=== PATIENT | female | born 1965 | race Caucasian/White ===

== ENCOUNTER 2016-10-18 06:11 | Day surgery (SDC) | payer OTHER ==
[~2016-10-18] VITALS: Ht 170.2 cm; Wt 79.4 kg
[~2016-10-18 06:11] MED LIST: ESTRACE1 MG PO; ULTRAM50 MG PO
[2016-10-18 07:57] LABS: HEMATOCRIT 40.2 % (36.0-48.0); HEMOGLOBIN 14.1 g/dL (12-16); MCHC 35.1 g/dL (31.0-37.0); MCV 88.4 fL (80.0-100.0); MEAN PLATELET VOLUME 8.8 fL (7.4-10.4); RBC 4.55 10x6/uL (4.00-5.40); RDW 12.3 % (11.5-14.5); WBC 6.7 10x3/uL (4.8-10.8)
[2016-10-18] MEDS ORDERED: PRILOSEC PO (08:05)
[2016-10-18 08:06] VITALS: BP 122/64; Ht 170.2 cm; Wt 79.4 kg
--- NOTE | 2016-10-18 10:54 | NUR ---
ORTIZ CATHETER DC WITH CATHETER TIP INTACT. 80CC URINE IN BAG.
--- NOTE | 2016-10-18 11:14 | NUR ---
ANESTHESIA CONSULTED ABOUT O2 SAT AND ORDERED DISCHARGE FROM RECOVERY ROOM WITH O2SAT > 90%
--- NOTE | 2016-10-18 13:54 | NUR ---
NORCO 5MG PO FOR C/O PAIN.
--- NOTE | 2016-10-18 14:10 | NUR ---
DISCHARGE INSTRUCTIONS AND RX GIVEN, VOICED UNDERSTANDING. DISCHARGED HOME VIA WC.
[2016-10-25] MEDS ORDERED: PRILOSEC10 M1 PO (10:00)
--- NOTE | 2016-12-06 10:17 | HP ---
PATIENT: ABIODUN WALKER MEDICAL RECORD: [id number] ACCOUNT: [id number] LOCATION:[facility] : 61 ADMISSION DATE: 10/18/16 HISTORY AND PHYSICAL EXAMINATION CHIEF COMPLAINT: Polyp. HISTORY OF PRESENT ILLNESS: The patient has an adenomatous polyp of the appendix. It covers the appendiceal orifice. I tried to remove it endoscopically with the argon plasma experimental rocket sled mechanic. However, I was fearful that manipulations of this could actually precipitate a bout of acute appendicitis. Therefore, the patient to undergo laparoscopic appendectomy, possible cecectomy today. The risks, possible complications and alternatives to procedure were explained to the patient. She elects to proceed. PAST MEDICAL HISTORY AND PAST SURGICAL HISTORY: Hysterectomy, ACL repair and gastroesophageal reflux controlled with medicines. REVIEW OF SYSTEMS: Negative for CVA or seizures. Negative for diabetes or thyroid problems. ALLERGIES: PENICILLINS WELL CEFDINIR. HOME MEDICINES: Prilosec and Estrace. PHYSICAL EXAMINATION: GENERAL: The patient does not appear acutely ill. She does not appear chronically ill. VITAL SIGNS: Reviewed. HEAD: External ears appear normal. EYES: Extraocular movements are intact. NECK: Trachea is midline. CHEST: No intercostal retractions. PULMONARY: Nonlabored, no stridor. ABDOMEN: Nontender. IMPRESSION: Appendiceal polyp, possible appendiceal tumor. PLAN: Will be laparoscopic appendectomy, possible laparoscopic cecectomy. TRANSINT:[id number] Voice Confirmation ID: [id number] DOCUMENT ID: [id number] ANJELICA BONILLA MD at 1017 CC: ALEYDA LORENZO MD, GEE TAVAREZ DO and MIKY OLSON [id number] DICTATION DATE: 10/18/16 1050 [facility] [employer] [employer]: 10/18/[address] [facility] 10/18/[address] [address]
--- NOTE | 2016-12-06 10:17 | OP ---
PATIENT NAME: ABIODUN WALKER MEDICAL RECORD: [id number] :61 LOCATION:D.OPS ADMISSION DATE: SURGEON: ANJELICA BONILLA MD DATE OF OPERATION: 10/18/2016 PREOPERATIVE DIAGNOSIS: Appendiceal polyp versus mass. POSTOPERATIVE DIAGNOSES: Appendiceal polyp versus mass with a very close margin after the appendectomy necessitating a laparoscopic cecectomy. Pelvic adhesions. PROCEDURE: Laparoscopic appendectomy with cecectomy. SURGEON: Anjelica Bonilla MD CO FOUNDER AND CTO: None. BLOOD LOSS: Minimal. ANESTHESIA: General. COMPLICATIONS: None. The risks, possible complications and alternatives to the procedure were explained to the patient. She elects to proceed. OPERATIVE COURSE: The patient was conveyed to the operating room electively on 10/18/2016. General anesthesia was induced by the anesthesia staff. The abdomen was sterilely prepped and draped. A small skin jennifer was accomplished in the left upper quadrant. A Veress needle was inserted through the skin jennifer into the peritoneal cavity. CO2 insufflation was begun. Once a sufficient pneumoperitoneum had been achieved, a 5-mm trocar was inserted through an incision in the left lower quadrant. Under direct internal vision utilizing a television camera, a 12-mm trocar was inserted through an incision at the umbilicus. Another 5-mm trocar was inserted through an incision within the patient's Pfannenstiel scar, in the right lower quadrant. During insertion of the Veress needle and all trocars, there appeared to have been no injury to the bowels, any intraperitoneal or retroperitoneal structures. The laparoscopic camera was inserted. An abdominal survey was undertaken. The tip of the cecum was stuck down due to adhesions in the pelvis. I freed this up through the use of sharp and dull dissection. I then incised the retroperitoneal attachments to the cecum. I mobilized the cecum laterally and posteriorly. I took down the mesoappendix utilizing the EnSeal device. I then stapled across the tip of the cecum and removed the appendix. It was placed within an endoscopic retrieval bag. It was sent to the pathologist for interpretation. He stated that one margin was pretty close and he would recommend reexcision. Therefore, a full laparoscopic cecectomy was indicated. I grasped the staple line. I pulled it posteriorly. I then excised the remaining portion of the cecum utilizing the linear cutting stapler. This portion was sent to the pathologist as a permanent section. Meticulous hemostasis was achieved with the EnSeal device. I irrigated and aspirated. There was no bleeding even at low pressure of 8. The 12-mm trocar was removed. A Christoph-Malvin suture closure device and a 0 Vicryl suture was used to close the fascia and muscle at the umbilicus. All the trocars were removed and the OPERATIVE REPORT [id number] ABIODUN WALKER abdomen desufflated. The 5-mm trocar skin incisions were closed with interrupted intracuticular 3-0 Vicryls. The skin at the umbilicus was closed with interrupted 4-0 Vicryl Rapide sutures. Benzoin and Steri-Strips were applied. The patient was then extubated and conveyed to post-anesthesia care unit where she was in stable condition. She will be dismissed home on hydrocodone for pain. I will see her in the office in 2-3 weeks. TRANSINT:[id number] Voice Confirmation ID: [id number] DOCUMENT ID: [id number] ANJELICA BONILLA MD at 1017 CC: [id number] DICTATION DATE: 10/18/16 1100 [employer]EST BIOMETR[employer] PROFESSOR: 10/18/16 1155 [facility] 10/18/[address] [address]
== END 2016-10-18 14:10 | disposition home or self-care (01) ==
LOC: D.OPS 06:11 → D.PAN 08:45 → D.OPS 14:10
PROVIDERS: Anesthesiology
DX: K38.8 Other specified diseases of appendix (principal); K63.89 Other specified diseases of intestine; K21.9 Gastro-esophageal reflux disease without esophagitis; Z79.899 Other long term (current) drug therapy; Z88.0 Allergy status to penicillin; Z88.1 Allergy status to other antibiotic agents

== ENCOUNTER 2016-10-26 05:53 | Day surgery (SDC) | payer OTHER ==
[2016-10-25 11:29] LABS: HEMATOCRIT 43.7 % (36.0-48.0); HEMOGLOBIN 14.9 g/dL (12-16); MCH 31.2 pg (26.0-34.0); MCHC 34.1 g/dL (31.0-37.0); MCV 91.4 fL (80.0-100.0); MEAN PLATELET VOLUME 9.2 fL (7.4-10.4); RBC 4.78 10x6/uL (4.00-5.40); RDW 12.3 % (11.5-14.5); WBC 6.5 10x3/uL (4.8-10.8)
[~2016-10-26] VITALS: Ht 170.2 cm; Wt 79.4 kg
[~2016-10-26 05:53] MED LIST changes: +PRILOSEC PO; +PRILOSEC10 M1 PO
[2016-10-26 06:06] VITALS: BP 130/73; Ht 170.2 cm; Wt 79.4 kg
--- NOTE | 2016-10-26 08:32 | NUR ---
0826: ELLA IN OP SERVICES STATED THAT FAMILY LEFT OP ROOM TO EAT.
[2016-10-26] MEDS ORDERED: HYDROCODONE-APA1 TAB PO (08:46)
--- NOTE | 2016-10-26 09:07 | NUR ---
VANCOMYCIN 1GM/250NS INFUSING ON ARRIVAL TO PACU WITH 50CC LEFT TO INFUSE
--- NOTE | 2016-10-26 10:25 | NUR ---
1025 CPM MACHINE DELIVERED TO PATIENT
--- NOTE | 2016-10-26 11:03 | NUR ---
1100 DISCHARGE INSTRUCTIONS REVIEWED WITH PATIENT & FAMILY; VERBALIZED UNDERSTANDING
--- NOTE | 2016-11-06 18:23 | OP ---
PATIENT NAME: ABIODUN WALKER MEDICAL RECORD: [id number] :61 LOCATION:D.OPS ADMISSION DATE: SURGEON: GABRIEL DOMÍNGUEZ MD DATE OF OPERATION: 10/26/2016 PREOPERATIVE DIAGNOSIS: Anterior cruciate ligament tear of the left knee. POSTOPERATIVE DIAGNOSIS: Anterior cruciate ligament tear of the left knee. PROCEDURE: Allograft ACL reconstruction done arthroscopically. SURGEON: Gabriel Domínguez MD ANESTHESIA: General. INTRAOPERATIVE COMPLICATIONS: None. SUMMARY OF PATHOLOGIC FINDINGS: The patient had a full thickness ACL tear, minimal amount of chondral damage was done to the medial femoral condyle. OPERATIVE SUMMARY IN DETAIL: After obtaining the appropriate preoperative orthopedic surgery consent as well as anesthetic consultation, evaluation and clearance, the patient was brought to the operating room and placed on the operating table in supine position. After adequate general laryngeal mask was administered, tourniquet was placed about the proximal aspect of the left lower extremity. Left lower extremity was then prepped and draped in usual sterile fashion. The leg was elevated and exsanguinated, tourniquet inflated to 350 mmHg. Routine inferolateral portal was established followed by superomedial portal and inferomedial portal. Diagnostic arthroscopy revealed the above findings. The residual ACL stump was taken down from both the femur and the tibia. A tibial tunnel guide was placed into the tibia, 11-mm reamer was then used to create the tibial tunnel. This was followed by placement of the Beath pin in the appropriate position on the femur, bicortically and out the skin of the lateral thigh. Appropriate reaming was done 30 mm deep with a low profile 11-mm reamer followed by the 4 mm reamer to perforate the lateral cortex. Passing suture was then placed followed by placement of the TightRope BTB allograft. It seated nicely in both the femur as well as the tibia and this was toggled with the TightRope and was seated nicely. The knee was taken through range of motion and the distal aspect of the ACL graft was then affixed using the tibial post-bicortically from [employer]. Having completed this, the patient's pivot shift was negative as was the anterior drawer. The wounds were closed in the usual fashion. Sterile dressings were applied. Tourniquet was deflated. The patient was awakened and taken to recovery room in stable condition. All final needle and sponge counts were correct. 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
== END 2016-10-26 11:00 | disposition home or self-care (01) ==
LOC: D.OPS 05:53 → D.PAN 07:30 → D.OPS 07:30
PROVIDERS: Anesthesiology
DX: S83.512A Sprain of anterior cruciate ligament of left knee, initial encounter (principal)

== ENCOUNTER → 2016-11-22 08:48 | Outpatient (CLI) | payer OTHER ==
[2016-10-26 06:06] VITALS: BMI 27.4
[~2016-11-22 08:48] MED LIST changes: +HYDROCODONE-APA1 TAB PO
[2016-11-22 09:55] LABS: BILIRUBIN - DIRECT 0.09 mg/dL (0.00-0.30); BILIRUBIN - INDIRECT 0.26 mg/dL (0.00-1.00); BILIRUBIN - TOTAL 0.35 mg/dL (0.2-1.3); PROTEIN - SERUM 7.5 g/dL (6.4-8.2)
== END | disposition home or self-care (01) ==
LOC: D.US 11-16 09:30
PROVIDERS: Internal Medicine Gastroenterology
DX: K76.0 Fatty (change of) liver, not elsewhere classified (principal)